=== PATIENT | male | born 1940 | race Caucasian/White ===

== ENCOUNTER → 2020-02-14 06:00 | Outpatient (CLI) | payer OTHER ==
[~2020-02-14 06:00] MED LIST: ALDACTONE 50 MG; ALDACTONE PO; ALDACTONE50 MG; ALDACTONE50 MG PO; CEFUROXIME500 MG PO; CIPRO500 MG PO; COZAAR50 MG; DILANTIN 100MG; DILANTIN PO; DILANTIN30 MG; DIOVAN 320 MG; FLAGYL500MG PO; LASIX 20 MG; LASIX20 MG; LOSART PO; PROTONIX40 MG PO; SYNTHROID50 MCG; ULTRACET PO; URIN D.S. TABL1 EACH PO; VASOTEC; VASOTEC2.5 MG; ZYLOPRIM100 M1; [UNRECOGNIZED DRUG - OTHER]
== END | disposition home or self-care (01) ==
LOC: LAB 06:00 → ADM 02-15 08:00 → EDSTATUS 02-16 08:00 → CIR.AMB 02-16 08:00
PROVIDERS: ATTEND Specialist
DX: C66.1 Malignant neoplasm of right ureter (principal); I10 Essential (primary) hypertension; Z01.810 Encounter for preprocedural cardiovascular examination; Z01.812 Encounter for preprocedural laboratory examination; Z01.811 Encounter for preprocedural respiratory examination

== ENCOUNTER 2020-03-11 16:09 | Emergency (ER) | payer OTHER ==
[~2020-03-11] VITALS: Ht 170.2 cm; Wt 89.8 kg
== END 2020-03-11 21:00 | disposition home or self-care (01) ==
LOC: ER 16:09
DX: N39.0 Urinary tract infection, site not specified (principal); R31.0 Gross hematuria; I95.89 Other hypotension; C78.00 Secondary malignant neoplasm of unspecified lung; C67.9 Malignant neoplasm of bladder, unspecified; Z03.818 Encounter for observation for suspected exposure to other biological agents ruled out; G30.8 Other Alzheimer's disease; F02.80 Dementia in other diseases classified elsewhere, unspecified severity, without behavioral disturbance, psychotic disturbance, mood disturbance, and anxiety